=== PATIENT | male | born 1980 | race Caucasian/White ===

== ENCOUNTER 2016-03-28 12:29 | Emergency (ER) | payer MEDICAID ==
[2016-03-28] MEDS ORDERED: CYCLOBENZAPRINE 10 MG TAB ONE (12:45)
[2016-03-28] MEDS ORDERED: TRAMADOL 50 MG TAB ONE (12:46)
== END 2016-03-28 13:31 | disposition home or self-care (01) ==
LOC: FASTR 12:29
CPT/HCPCS: 72050; 72072; 72100